=== PATIENT | female | born 1970 | race African-American/Black ===

== ENCOUNTER 2018-08-13 01:25 | Emergency (ER) | payer OTHER ==
[~2018-08-13] VITALS: Ht 167.6 cm; Wt 94.1 kg
[2018-08-13 01:27] VITALS: Ht 167.6 cm; Wt 94.1 kg
[2018-08-13 02:17] LABS: BASOPHIL % 1.5 % (0-2); PLATELET COUNT 342 x10^3mcL (130-400); RED CELL DISTRIBUTION WIDTH 14.3 % (11.5-14.5)
[2018-08-13 02:30] LABS: CARBON DIOXIDE 29.7 mmol/L (21-32); CREATININE SERUM 1.1 mg/dL (0.6-1.0); POTASSIUM SERUM 4.3 mmol/L (3.5-5.1)
[2018-08-13 02:34] LABS: ALBUMIN 3.8 g/dL (3.4-5.0); BILIRUBIN TOTAL 0.3 mg/dL (0.20-1.00); TOTAL PROTEIN, SERUM 8.1 g/dL (6.4-8.2)
[2018-08-13 04:59] VITALS: BP 133/92
== END 2018-08-13 05:00 | disposition home or self-care (01) ==
LOC: ED 01:25
PROVIDERS: Emergency Medicine
DX: R07.89 Other chest pain (principal)
CPT/HCPCS: 36415; 85378; Q0092